=== PATIENT | female | born 1975 | race Caucasian/White ===

== ENCOUNTER 2019-05-27 08:41 | Emergency (ER) | payer SELFPAY ==
--- NOTE | 2019-05-27 09:01 | ER ---
Nurse's Notes [facility] Name: Violet Youssef Age: 43 yrs Sex: Female : 1975 Arrival Date: 05/27/2019 Time: 08:43 Bed 5 Private MD: Diagnosis: Dizziness and giddiness Presentation: 05/27 08:50 Presenting complaint: Patient states: intermittent dizziness, double vision and bouts ss of anger that began 2 weeks ago after getting hit in the head with a heavy object at work. Transition of care: patient was not received from another setting of care. Onset of symptoms is unknown. Risk Assessment: Do you want to hurt yourself or someone else? Patient reports no desire to harm self or others. Initial Sepsis Screen: Does the patient meet any 2 criteria? No. Patient's initial sepsis screen is negative. Does the patient have a suspected source of infection? No. Patient's initial sepsis screen is negative. Care prior to arrival: None. 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 - Social history:: Smoking status: Patient uses tobacco products, smokes one-half pack cigarettes per day. - Ebola Screening: : No symptoms or risks identified at this time. Screenin:51 Abuse screen: Denies threats or abuse. Denies injuries from another. Nutritional sv screening: No deficits noted. Tuberculosis screening: No symptoms or risk factors identified. Fall Risk None identified. Assessment: 08:50 General: Appears in no apparent distress. comfortable, well groomed, well developed, sv Behavior is calm, cooperative, appropriate for age. Pain: Denies pain. Neuro: Level of Consciousness is awake, alert, obeys commands, Oriented to person, place, time, situation, Moves all extremities. Full function Gait is steady, Speech is normal, Facial symmetry appears normal, Reports dizziness, intermittent episodes of anger. Cardiovascular: Patient's skin is warm and dry. Rhythm is sinus rhythm. Respiratory: Airway is patent Respiratory effort is even, unlabored, Respiratory pattern is regular, symmetrical. Derm: Skin is pink, warm \T\ dry. Musculoskeletal: Range of motion: intact in all extremities. 09:12 Reassessment: Patient appears in no apparent distress at this time. No changes from previously documented assessment. Patient and/or family updated on plan of care and expected duration. Pain level reassessed. Patient is alert, oriented x 3, equal unlabored respirations, skin warm/dry/pink. Vital Signs: 08:54 BP 126 / 79; Pulse 75; Resp 19; Temp 97.4(TE); Pulse Ox 100% on R/A; ss ED Course: 08:43 Patient arrived in ED. rg4 08:46 Cisco Mann MD is Attending Physician. gs 08:51 Kenisha Perales RN is Primary Nurse. sv 08:51 Arm band placed on. sv 08:51 Patient has correct armband on for positive identification. Placed in gown. Bed in low sv position. Call light in reach. case monitor on. Pulse ox on. NIBP on. Door closed. Head of bed elevated. 08:53 Triage completed. ss 08:56 ED physician to see patient. sv 09:00 Dennis Murray MD is Referral Physician. gs 09:13 No provider procedures requiring assistance completed. Patient did not have IV access hb during this emergency room visit. Administered Medications: No medications were administered Outcome: 09:00 Discharge ordered by . gs 09:12 Discharged to home ambulatory. hb 09:12 Condition: stable 09:12 Discharge instructions given to patient, Instructed on discharge instructions, follow up and referral plans. Demonstrated understanding of instructions, follow-up care. 09:13 Patient left the ED. hb Signatures: Kenisha Perales, YULIYA DWYER Tiara Darnell RN RN Violet Anne RN RN hb Garcia, Rubi rg4 Cisco Mann MD MD
--- NOTE | 2019-05-27 09:01 | EDPHYS ---
Physician Documentation [facility] Name: Violet Youssef Age: 43 yrs Sex: Female : 1975 Arrival Date: 05/27/2019 Time: 08:43 Bed 5 Private MD: ED Physician Cisco Mann HPI: 05/27 08:57 This 43 yrs old Female presents to ER via Ambulatory with complaints of gs Dizziness. 08:57 The patient presents with dizziness. Onset: The symptoms/episode began/occurred 3 gs year(s) ago. Context: head injury, about 3-4 weeks ago hit head on cabinet no loc started getting dizzy again. Modifying factors: The symptoms are alleviated by nothing, the symptoms are aggravated by nothing. Associated signs and symptoms: Pertinent negatives: confusion. Severity of symptoms: At their worst the symptoms were moderate in the emergency department the symptoms have improved markedly. The patient has experienced similar episodes in the past, multiple times. 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 - Social history:: Smoking status: Patient uses tobacco products, smokes one-half pack cigarettes per day. - Ebola Screening: : No symptoms or risks identified at this time. ROS: 08:57 All other systems are negative. gs 08:57 Psych: Positive for anger episodes. gs Exam: 08:57 Head/Face: Normocephalic, atraumatic. Eyes: Pupils equal round and reactive to light, gs extra-ocular motions intact. Lids and lashes normal. Conjunctiva and sclera are non-icteric and not injected. Cornea within normal limits. Periorbital areas with no swelling, redness, or edema. ENT: Nares patent. No nasal discharge, no septal abnormalities noted. Tympanic membranes are normal and external auditory canals are clear. Oropharynx with no redness, swelling, or masses, exudates, or evidence of obstruction, uvula midline. Mucous membranes moist. Neck: Trachea midline, no thyromegaly or masses palpated, and no cervical lymphadenopathy. Supple, full range of motion without nuchal rigidity, or vertebral point tenderness. No Meningismus. Chest/axilla: Normal chest wall appearance and motion. Nontender with no deformity. No lesions are appreciated. Cardiovascular: Regular rate and rhythm with a normal S1 and S2. No gallops, murmurs, or rubs. Normal PMI, no JVD. No pulse deficits. Respiratory: Lungs have equal breath sounds bilaterally, clear to auscultation and percussion. No rales, rhonchi or wheezes noted. No increased work of breathing, no retractions or nasal flaring. Abdomen/GI: Soft, non-tender, with normal bowel sounds. No distension or tympany. No guarding or rebound. No evidence of tenderness throughout. Back: No spinal tenderness. No costovertebral tenderness. Full range of motion. Skin: Warm, dry with normal turgor. Normal color with no rashes, no lesions, and no evidence of cellulitis. MS/ Extremity: Pulses equal, no cyanosis. Neurovascular intact. Full, normal range of motion. 08:57 Constitutional: The patient appears alert, awake. 08:57 Neuro: Orientation: is normal, Cranial nerves: grossly normal, Cerebellar function: is grossly normal, normal finger to nose testing, Motor: strength is normal, Sensation: pin prick testing is normal. 08:57 Psych: Behavior/mood is pleasant. Vital Signs: 08:54 BP 126 / 79; Pulse 75; Resp 19; Temp 97.4(TE); Pulse Ox 100% on R/A; ss MDM: 08:55 Patient medically screened. 08:57 Differential diagnosis: idiopathic dizziness, vertigo. Data reviewed: vital signs, nurses notes. Counseling: I had a detailed discussion with the patient and/or guardian regarding: the historical points, exam findings, and any diagnostic results supporting the discharge/admit diagnosis. 08:57 ED course: chronic issue doesn't want ct just referral to neurology. gs Administered Medications: No medications were administered Disposition: 05/27/19 09:00 Discharged to Home. Impression: Dizziness and giddiness. - Condition is Stable. - Discharge Instructions: Dizziness. - Medication Reconciliation Form, Thank You Letter, Antibiotic Education, Prescription Opioid Use form. - Follow up: Dennis Murray MD; When: 2 - 3 days; Reason: Re-evaluation by your physician. Signatures: Kenisha Perales RN RN sv Tiara Darnell RN RN Violet Anne RN RN Cisco Mann MD MD gs Corrections: (The following items were deleted from the chart) 09:13 09:00 05/27/2019 09:00 Discharged to Home. Impression: Dizziness and giddiness. hb Condition is Stable. Forms are Medication Reconciliation Form, Thank You Letter, Antibiotic Education, Prescription Opioid Use. Follow up: Dennis Murray; When: 2 - 3 days; Reason: Re-evaluation by your physician. gs
== END 2019-05-27 09:13 | disposition home or self-care (01) ==
LOC: ER 08:41
DX: R42 Dizziness and giddiness (principal); W22.8XXA Striking against or struck by other objects, initial encounter; Y93.9 Activity, unspecified; Y92.9 Unspecified place or not applicable; Z88.0 Allergy status to penicillin; F17.210 Nicotine dependence, cigarettes, uncomplicated
CPT/HCPCS: 99284